=== PATIENT | male | born 1960 | race Caucasian/White ===

== ENCOUNTER 2018-03-04 17:47 | Emergency (ER) | payer MEDICARE, BC ==
[2018-03-04 19:38] VITALS: BP 153/102
--- NOTE | 2018-03-04 19:51 | EDM.PDOC ---
ED HPI GENERAL MEDICAL PROBLEM - General Chief Complaint: Neck Problem Stated Complaint: NECK PAIN/[phone] Time Seen by Provider: 03/04/18 19:44 Source of Information: Reports: Patient History Limitations: Reports: No Limitations - History of Present Illness INITIAL COMMENTS - FREE TEXT/NARRATIVE: pt states sudden onset last tuesday while watching football and turning her head to see the actin was difficult and progressively getting worse till today unable to turn head and even hard to swallow but denies sore throat. Neck Pain Score (Numeric/FACES): 10 - Related Data Allergies Allergy/AdvReac Type Severity Reaction Status Date / Time No Known Allergies Allergy Verified 03/04/18 18:19 Home Meds: Home Meds Atenolol [Tenormin] 50 mg PO DAILY 11/04/13 [History] Diphenoxylate HCl/Atropine [Lomotil] 1 tab PO TID PRN 11/06/13 [History] Allopurinol [Zyloprim] 300 mg PO DAILY 01/22/16 [History] Benazepril [Lotensin] 20 mg PO DAILY 01/22/16 [History] Betamethasone/Clotrimazole [Lotrisone] 1 applic TOP BID 01/22/16 [History] Methylcellulose (with Sugar) [Citrucel] 2 scoop PO DAILY PRN 01/22/16 [History] Naproxen [Naprosyn] 500 mg PO BID 01/22/16 [History] Rivaroxaban [Xarelto] 10 mg PO DAILY 01/22/16 [History] Tadalafil [Cialis] 20 mg PO DAILY PRN 01/22/16 [History] Triamcinolone Acetonide [Triamcinolone Acetonide 0.1% Crm] 1 applic TOP BID [History] amLODIPine [Norvasc] 10 mg PO DAILY 01/22/16 [History] oxyCODONE 5 mg PO Q4H PRN 01/22/16 [History] traMADol [Ultram] 50 mg PO Q6H PRN 01/22/16 [History] Griseofulvin Ultramicrosize [Bisi-Peg] 500 mg PO BIDMEALS 01/23/16 [History] Patient's Own Medication [Ptom] 0 each PO 1200,1800 each 08/23/16 [Rx] Past Medical History HEENT History: Reports: Impaired Vision Cardiovascular History: Reports: High Cholesterol, Hypertension Respiratory History: Reports: None Genitourinary History: Reports: None Musculoskeletal History: Reports: Arthritis, Gout Neurological History: Reports: None Psychiatric History: Reports: None Endocrine/Metabolic History: Reports: None Hematologic History: Reports: None Immunologic History: Reports: None Oncologic (Cancer) History: Reports: None Dermatologic History: Reports: None - Infectious Disease History Infectious Disease History: Reports: Chicken Pox - Past Surgical History GI Surgical History: Reports: Appendectomy, Colon Other Neurological Surgeries/Procedures: back injury, compressed disks Musculoskeletal Surgical History: Reports: Knee Replacement, Other (See Below) Other Musculoskeletal Surgeries/Procedures:: ankle and elbow Social & Family History - Family History Family Medical History: Noncontributory - Tobacco Use Smoking Status *Q: Never Smoker Second Hand Smoke Exposure: No - Caffeine Use Caffeine Use: Reports: Coffee - Recreational Drug Use Recreational Drug Use: No - Living Situation & Occupation Living situation: Reports: with Family ED ROS GENERAL - Review of Systems Review Of Systems: ROS reveals no pertinent complaints other than HPI. ED EXAM, UPPER BACK/NECK PAIN - Physical Exam Exam: See Below Exam Limited By: No Limitations General Appearance: Alert, WD/WN, Mild Distress, Other (neck pain) Ears Exam: Hearing Grossly Normal Throat/Mouth Exam: Normal Voice, No Airway Compromise Head Exam: Atraumatic Neck Exam: Muscle Spasm, Tenderness, Tender Lateral Nexus Criteria: No: Posterior, Midline Cervical Tenderness, Evidence of Intoxication, Altered Level of Consciousness, Focal Neurological Deficit, Painful Distraction Injuries Cardiovascular/Respiratory: Regular Rate, Rhythm, No Respiratory Distress GI/Abdominal: Soft, Non-Tender Neurologic: No Motor/Sensory Deficits, Alert, Normal Mood/Affect, Oriented x 3 Psychiatric: Normal Affect, Normal Mood Skin Exam: Normal Color, Warm/Dry Lymphatic: No Adenopathy Course - Vital Signs Last Recorded V/S: Last Vital Signs Temp 37.2 C 03/04/18 19:37 Pulse 88 03/04/18 19:37 Resp 18 03/04/18 19:37 BP 153/102 H 03/04/18 19:37 Pulse Ox 96 03/04/18 19:37 - Orders/Labs/Meds Orders: Active Orders 24 hr Category Date Time Status Orphenadrine [Norflex] Med 03/04/18 21:00 Active 60 mg IM Q12H Medication Orders Orphenadrine Citrate (Norflex) 60 mg IM Q12H WANDA Last Admin: 03/04/18 20:57 Dose: 60 mg Labs: Laboratory Tests 03/04/18 03/04/18 03/04/18 Range/Units 20:14 20:14 20:14 WBC 9.6 (5.0-10.0) 10^3/uL RBC 4.01 L (4.6-6.2) 10^6/uL Hgb 13.6 L (14.0-18.0) g/dL Hct 40.8 (40.0-54.0) % MCV 101.7 H D (80-100) fL MCH 33.9 (27.0-34.0) pg MCHC 33.3 (33.0-35.0) g/dL Plt Count 151 (150-450) 10^3/uL Neut % (Auto) 83.6 H (42.2-75.2) % Lymph % (Auto) 9.0 L (20.5-50.1) % [place] % (Auto) 6.8 (2-8) % Eos % (Auto) 0.3 L (1.0-3.0) % Baso % (Auto) 0.3 (0.0-1.0) % Sodium 135 (135-145) mmol/L Potassium 4.2 (3.6-5.0) mmol/L Chloride 97 L (101-111) mmol/L Carbon Dioxide 26.0 (21.0-31.0) mmol/L Anion Gap 16.2 BUN 13 (7-18) mg/dL Creatinine 0.9 (0.6-1.3) mg/dL Est Cr Clr Drug Dosing 89.47 mL/min Estimated GFR (MDRD) > 60 BUN/Creatinine Ratio 14.44 Glucose 110 H (74-105) mg/dL Lactic Acid 1.9 (0.5-2.2) mmol/L Calcium 9.5 (8.4-10.2) mg/dl Total Bilirubin 1.1 H (0.2-1.0) mg/dL AST 72 H (10-42) IU/L ALT 44 (10-60) IU/L Alkaline Phosphatase 133 H (42-121) IU/L Total Protein 8.4 H (6.7-8.2) g/dl Albumin 4.0 (3.2-5.5) g/dl Globulin 4.4 Albumin/Globulin Ratio 0.91 Meds: Medications Generic Name Dose Route Start Last Admin Trade Name Ignacia PRN Reason Stop Dose Admin Orphenadrine Citrate 60 mg 03/04/18 21:00 03/04/18 20:57 Norflex IM 60 mg Q12H WANDA Administration Discontinued Medications Generic Name Dose Route Start Last Admin Trade Name Ignacia PRN Reason Stop Dose Admin Butorphanol Tartrate 1 mg 03/04/18 21:36 03/04/18 21:47 Stadol IVPUSH 03/04/18 21:37 1 mg ONETIME ONE Administration Ketorolac Tromethamine 15 mg 03/04/18 19:51 03/04/18 20:16 Toradol IVPUSH 03/04/18 19:52 15 mg ONETIME ONE Administration - Re-Assessments/Exams Free Text/Narrative Re-Assessment/Exam: 03/04/18 22:22 re-exam; feeling much better now ready to go home Departure - Departure Time of Disposition: 22:22 Disposition: Home, Self-Care 01 Condition: Good Clinical Impression: Cervical paraspinal muscle spasm - Discharge Information Instructions: Muscle Cramps and Spasms, [id number] Forms: ED Department Discharge Additional Instructions: 1) rest and avoid lifting and straining 2) try ice or heat to sore areas 3) recheck as needed - My Orders Last 24 Hours: My Active Orders 03/04/18 21:00 Orphenadrine [Norflex] 60 mg IM Q12H - Assessment/Plan Last 24 Hours: My Active Orders 03/04/18 21:00 Orphenadrine [Norflex] 60 mg IM Q12H
[2018-03-04] MEDS: Ketorolac 30 MG/ML SDV IVPUSH ONE (20:16)
[2018-03-04 20:40] LABS: ANION GAP 16.2; CHLORIDE,CL 97 mmol/L (101-111); SODIUM,NA 135 mmol/L (135-145)
[2018-03-04] MEDS: Butorphanol 2 MG/ML SDV IVPUSH ONE (21:47)
[2018-03-05] MEDS: Cyclobenzaprine 10 MG Tab ONE (00:39)
[2018-03-05] MEDS: Acetaminophen/HYDROcodone 325-10 MG Tab ONE (00:39)
== END 2018-03-04 22:33 | disposition home or self-care (01) ==
LOC: DL.ED 17:47
DX: M62.838 Other muscle spasm (principal); M54.2 Cervicalgia; I10 Essential (primary) hypertension; Z79.899 Other long term (current) drug therapy
CPT/HCPCS: 36415; 72125; 80053; 83605; 85025; 96372; 96374; 96375; 99284; J0595; J1885; J2360

== ENCOUNTER 2018-08-07 07:50 | Emergency (ER) | payer MEDICARE, BC ==
[2018-08-07 08:18] VITALS: BP 119/76
--- NOTE | 2018-08-07 09:12 | EDM.PDOC ---
<Annamaria Vick R - Last Filed: 08/07/18 09:32> ED HPI GENERAL MEDICAL PROBLEM - General Chief Complaint: ENT Problem Stated Complaint: LEFT SIDE OF FACE WAS SWOLLEN Time Seen by Provider: 08/07/18 08:30 Source of Information: Reports: Patient, Family, RN, RN Notes Reviewed - History of Present Illness INITIAL COMMENTS - FREE TEXT/NARRATIVE: Patient presents to the Emergency department with complaints of lip swelling. He stated his left side of his lips suddenly swelling. He had come mild difficulty swallowing. Denies difficulty breathing. Denies any new food, medication, or exposure to anything new. He had not eaten yet this morning. Patient reports seasonal allergies. Denies confusion, weakness, vision changes. Family states his speak is "thick." Denies any pain. States his lip feels like he has Novocaine injected. Onset: Today, Sudden Onset Date: 08/07/18 Onset Time: 07:00 Location: Reports: Face Quality: Reports: Other (swelling) Severity: Mild Improves with: Reports: None Worsens with: Reports: None Treatments BLENDER/BRAZE APPLICATOR: Reports: Other (see below) Other Treatments BLENDER/BRAZE APPLICATOR: none Throat Pain Score (Numeric/FACES): 2 - Related Data Allergies Allergy/AdvReac Type Severity Reaction Status Date / Time No Known Allergies Allergy Verified 08/07/18 08:06 Home Meds: Home Meds Atenolol [Tenormin] 50 mg PO DAILY 11/04/13 [History] Diphenoxylate HCl/Atropine [Lomotil] 1 tab PO TID PRN 11/06/13 [History] Allopurinol [Zyloprim] 450 mg PO DAILY 01/22/16 [History] Benazepril [Lotensin] 20 mg PO DAILY 01/22/16 [History] amLODIPine [Norvasc] 10 mg PO DAILY 01/22/16 [History] traMADol [Ultram] 50 mg PO Q6H PRN 01/22/16 [History] Past Medical History HEENT History: Reports: Impaired Vision, Other (See Below) Other HEENT History: hx of sty to eyelid Cardiovascular History: Reports: High Cholesterol, Hypertension Respiratory History: Reports: None Genitourinary History: Reports: None Musculoskeletal History: Reports: Arthritis, Gout Neurological History: Reports: None Psychiatric History: Reports: None Endocrine/Metabolic History: Reports: None Hematologic History: Reports: None Immunologic History: Reports: None Oncologic (Cancer) History: Reports: None Dermatologic History: Reports: Other (See Below) Other Dermatologic History: bergkaley dx - Infectious Disease History Infectious Disease History: Reports: Chicken Pox - Past Surgical History GI Surgical History: Reports: Appendectomy, Colon Other Neurological Surgeries/Procedures: back injury(fx T12), compressed spinal cord Musculoskeletal Surgical History: Reports: Knee Replacement, Other (See Below) Other Musculoskeletal Surgeries/Procedures:: ankle broken bones and torn ligaments. and elbow bursa sac removed Social & Family History - Family History Family Medical History: Noncontributory - Tobacco Use Smoking Status *Q: Never Smoker - Caffeine Use Caffeine Use: Reports: Coffee - Recreational Drug Use Recreational Drug Use: No - Living Situation & Occupation Living situation: Reports: with Family ED ROS ENT - Review of Systems Review Of Systems: See Below Constitutional: Reports: No Symptoms. Denies: Fever, Chills HEENT: Reports: Other (left sided lip swelling) Respiratory: Reports: No Symptoms. Denies: Shortness of Breath, Wheezing Cardiovascular: Reports: No Symptoms. Denies: Chest Pain Endocrine: Reports: No Symptoms GI/Abdominal: Reports: No Symptoms : Reports: No Symptoms Musculoskeletal: Reports: No Symptoms Skin: Reports: No Symptoms. Denies: Pruritis, Rash Neurological: Reports: No Symptoms, Numbness (to left lips). Denies: Confusion , Dizziness Psychiatric: Reports: No Symptoms Hematologic/Lymphatic: Reports: No Symptoms Immunologic: Reports: No Symptoms ED EXAM, ENT - Physical Exam Exam: See Below General Appearance: Alert, WD/WN, No Apparent Distress Eye Exam: Bilateral Eye: Other (sty to left upper eye lid, eye lids fully closing when blinking, no swelling or redness) Ears: Normal External Exam, Normal Canal, Hearing Grossly Normal, Normal TMs, TM Obscured by Cerumen (right) Nose: Normal Inspection, Normal Mucousa, No Blood Mouth/Throat: Normal Gums, Normal Teeth, Lip Swelling (left sided), Other ( unable to visualize oropharynx). No: Bleeding, Throat Pain, Throat Swelling, Tongue Swelling Head: Atraumatic, Normocephalic Neck: Normal Inspection, Supple, Non-Tender, Full Range of Motion. No: Lymphadenopathy (L), Lymphadenopathy (R) Respiratory/Chest: No Respiratory Distress, Lungs Clear, Normal Breath Sounds, No Accessory Muscle Use, Chest Non-Tender Cardiovascular: Normal Peripheral Pulses, Regular Rate, Rhythm, No Edema, No Gallop, No JVD, No Murmur, No Rub GI/Abdominal: Normal Bowel Sounds, Soft, Non-Tender, No Organomegaly, No Distention, No Abnormal Bruit, No Mass (Male) Exam: Deferred Rectal (Males) Exam: Deferred Extremities: Normal Inspection (equal strength, chronic right shoulder pain when assessing upper extremities strength), Normal Range of Motion, Non-Tender, No Pedal Edema, Normal Capillary Refill Neurological: Alert, Oriented, CN II-XII Intact, Normal Cognition, Normal Gait, Normal Reflexes, No Motor/Sensory Deficits. No: Confused, Memory Loss Recent Events Psychiatric: Normal Affect, Normal Mood Skin: Warm, Dry, Intact, Normal Color, No Rash Lymphatic: No Adenopathy Course - Vital Signs Last Recorded V/S: Last Vital Signs Temp 35.5 C 08/07/18 08:01 Pulse 96 08/07/18 08:01 Resp 17 08/07/18 08:01 BP 119/76 08/07/18 08:01 Pulse Ox 98 08/07/18 08:01 - Orders/Labs/Meds Orders: Active Orders 24 hr Category Date Time Status CULTURE STREP A CONFIRMATION [] Stat Lab 08/07/18 07:56 Results STREP SCRN A RAPID W CULT CONF [] Stat Lab 08/07/18 07:56 Results Departure - Departure Time of Disposition: 09:18 Disposition: Home, Self-Care 01 Condition: Good Clinical Impression: Lima's palsy - Discharge Information *PRESCRIPTION DRUG MONITORING PROGRAM REVIEWED*: Not Applicable *COPY OF PRESCRIPTION DRUG MONITORING REPORT IN PATIENT KIRAN: Not Applicable Instructions: Lima Palsy, Adult Forms: ED Department Discharge Additional Instructions: valacyclovir 1000mg three times a day for 7 days Prednisone 60mg once a day for 7 days Physical Therapy evaluation and treat for lima's Palsy Return to ED if symptoms of neurological changes, difficulty swallowing, or breathing worsen or are not improving. If rash near eye or symptoms of eyelid not closing return to clinic or still operator. See PCP if symptoms are worsening or not improving in one week. - My Orders Last 24 Hours: My Active Orders 08/07/18 07:56 CULTURE STREP A CONFIRMATION [RM] Stat STREP SCRN A RAPID W CULT CONF [RM] Stat - Assessment/Plan Last 24 Hours: My Active Orders 08/07/18 07:56 CULTURE STREP A CONFIRMATION [RM] Stat STREP SCRN A RAPID W CULT CONF [RM] Stat Assessment:: Lima's Palsy Plan: valacyclovir 1000mg three times a day for 7 days Prednisone 60mg once a day for 7 days Physical Therapy evaluation and treat for lima's Palsy Return to ED if symptoms of neurological changes, difficulty swallowing, or breathing worsen or are not improving. If rash near eye or symptoms of eyelid not closing return to clinic or still operator. See PCP if symptoms are worsening or not improving in one week. <David Boyd - Last Filed: 08/07/18 11:54> ED HPI GENERAL MEDICAL PROBLEM - History of Present Illness INITIAL COMMENTS - FREE TEXT/NARRATIVE: Patient has no recent falls. No headache. No visual disturbances. No change in the functionality of his upper or lower extremities. No paresthesias of his upper or lower extremities. No loss of bowel or bladder. ED ROS ENT - Review of Systems Neurological: Reports: Numbness ED EXAM, ENT - Physical Exam Exam Limited By: No Limitations Mouth/Throat: Other (unable to visualize oropharynx. Posterior pharynx is unremarkable. There is no swelling of the tongue. There is no swelling in the oropharynx. There is no erythema induration or swelling under the tongue.) Neurological: CN II-XII Intact (Grossly intact cranial nerves II12. Although he does have a very small amount of laxity of the muscles on the left upper and left lower lip. There is no swelling erythema induration. His speech is minimally thick. But otherwise clear.) Course - Re-Assessments/Exams Free Text/Narrative Re-Assessment/Exam: 08/07/18 11:53 This patient was seen in tandem with the nurse practitioner soon. I was present during the examination plan of care and disposition. I also physically examine the patient. I agree with the plan of care and disposition of the patient. Although the patient's findings are rather subtle and do not see any evidence of angioedema. His unilateral and abrupt onset this really is a presentation of Lima's palsy. He has no focal neurological deficits concerning for stroke. He also does not have any temporal cords tenderness visual disturbances or headache concerning for temporal arteritis. And this is unilateral. We'll treated with prednisone and acyclovir and physical therapy. The patient is understanding of this and his questions are answered.
== END 2018-08-07 09:44 | disposition home or self-care (01) ==
LOC: DL.ED 07:50
DX: G51.0 Bell's palsy (principal); E78.00 Pure hypercholesterolemia, unspecified; I10 Essential (primary) hypertension; Z79.899 Other long term (current) drug therapy
CPT/HCPCS: 87081; 87430; 99283

== ENCOUNTER 2018-08-08 09:04 | Emergency (ER) | payer MEDICARE, BC ==
[2018-08-08 09:21] VITALS: BP 87/52
--- NOTE | 2018-08-08 09:44 | EDM.PDOC ---
<Annamaria Vick R - Last Filed: 08/08/18 09:48> ED HPI GENERAL MEDICAL PROBLEM - General Chief Complaint: General Stated Complaint: TONGUE AND LOWER LIP SWELLED LAST PM Time Seen by Provider: 08/08/18 09:15 Source of Information: Reports: Patient, Family, RN, RN Notes Reviewed - History of Present Illness INITIAL COMMENTS - FREE TEXT/NARRATIVE: Patient presents to ED with complaints to bottom lip and tongue swelling. He took Benadryl. He is having difficulty swallowing. No breathing difficulties. He was seen yesterday 08/07/18 for one sided lip swelling. He was treated with Prednisone and Valacyclovir but did not take any medication until this morning. Last night the swelling worsened and was on bilateral bottom lip and tongue. He took his Benazepril last night. Denies fever, chills, N&V, chest pain, SOB. Duration: Day(s): (1) Location: Reports: Face Worsens with: Reports: None Associated Symptoms: Reports: Other (lip and tongue swelling) Treatments DIRECTOR GEOPHYSICAL LABORATORY: Reports: Other (see below) (benadryl) - Related Data Allergies Allergy/AdvReac Type Severity Reaction Status Date / Time PAVAN Inhibitors AdvReac Severe Facial Verified 08/08/18 09:40 Swelling Home Meds: Home Meds Atenolol [Tenormin] 50 mg PO DAILY 11/04/13 [History] Diphenoxylate HCl/Atropine [Lomotil] 1 tab PO TID PRN 11/06/13 [History] Allopurinol [Zyloprim] 450 mg PO DAILY 01/22/16 [History] Benazepril [Lotensin] 20 mg PO DAILY 01/22/16 [History] amLODIPine [Norvasc] 10 mg PO DAILY 01/22/16 [History] traMADol [Ultram] 50 mg PO Q6H PRN 01/22/16 [History] Past Medical History HEENT History: Reports: Impaired Vision, Other (See Below) Other HEENT History: hx of sty to eyelid Cardiovascular History: Reports: High Cholesterol, Hypertension Respiratory History: Reports: None Genitourinary History: Reports: None Musculoskeletal History: Reports: Arthritis, Gout Neurological History: Reports: None Psychiatric History: Reports: None Endocrine/Metabolic History: Reports: None Hematologic History: Reports: None Immunologic History: Reports: None Oncologic (Cancer) History: Reports: None Dermatologic History: Reports: Other (See Below) Other Dermatologic History: guille dx - Infectious Disease History Infectious Disease History: Reports: Chicken Pox - Past Surgical History GI Surgical History: Reports: Appendectomy, Colon Other Neurological Surgeries/Procedures: back injury(fx T12), compressed spinal cord Musculoskeletal Surgical History: Reports: Knee Replacement, Other (See Below) Other Musculoskeletal Surgeries/Procedures:: ankle broken bones and torn ligaments. and elbow bursa sac removed Social & Family History - Family History Family Medical History: Noncontributory - Tobacco Use Smoking Status *Q: Never Smoker Second Hand Smoke Exposure: No - Caffeine Use Caffeine Use: Reports: Coffee - Living Situation & Occupation Living situation: Reports: with Family ED ROS GENERAL - Review of Systems Review Of Systems: See Below Constitutional: Denies: Fever, Chills HEENT: Reports: Other (bilateral lower lip swelling and tongue swelling, Difficulty swallowing, denies difficulty breathing and pain. ) Respiratory: Reports: No Symptoms. Denies: Shortness of Breath, Wheezing, Cough Cardiovascular: Reports: No Symptoms. Denies: Chest Pain, Dyspnea on Exertion Endocrine: Reports: No Symptoms GI/Abdominal: Reports: Difficulty Swallowing (due to tongue swelling) : Reports: No Symptoms Musculoskeletal: Reports: No Symptoms Skin: Reports: No Symptoms Neurological: Reports: No Symptoms Psychiatric: Reports: No Symptoms Hematologic/Lymphatic: Reports: No Symptoms Immunologic: Reports: No Symptoms ED EXAM, GENERAL - Physical Exam Exam: See Below Exam Limited By: No Limitations General Appearance: Alert, WD/WN, No Apparent Distress, Other (Patient apears to be breathing easily, able to speak in full sentenences, no increased work of breathing) Nose: Normal Inspection, Normal Mucosa, No Blood Throat/Mouth: No Airway Compromise, Other (lower lip swelling throughout, enlarged smooth tongue, no swelling, induration or redness under toungue. Minimal view of oropharynx, nor erythema or swelling. ) Head: Atraumatic, Normocephalic Neck: Normal Inspection, Non-Tender, Lymphadenopathy (L), Lymphadenopathy (R), Other Respiratory/Chest: No Respiratory Distress, Lungs Clear, Normal Breath Sounds, No Accessory Muscle Use, Chest Non-Tender Cardiovascular: Normal Peripheral Pulses, Regular Rate, Rhythm, No Edema, No Gallop, No JVD, No Murmur, No Rub Neurological: Alert, Oriented, CN II-XII Intact, Normal Cognition Psychiatric: Normal Affect, Normal Mood Skin Exam: Warm, Dry, Intact, Normal Color, No Rash Lymphatic: No Adenopathy Course - Vital Signs Last Recorded V/S: Last Vital Signs Temp 37.1 C 08/08/18 09:06 Pulse 84 08/08/18 09:06 Resp 18 08/08/18 09:06 BP 87/52 L 08/08/18 09:06 Pulse Ox 97 08/08/18 09:06 Departure - Departure Time of Disposition: 09:35 Disposition: Home, Self-Care 01 Condition: Fair Clinical Impression: Angio-edema Qualifiers: Encounter type: initial encounter Qualified Code(s): T78.3XXA - Angioneurotic edema, initial encounter - Discharge Information *PRESCRIPTION DRUG MONITORING PROGRAM REVIEWED*: Not Applicable *COPY OF PRESCRIPTION DRUG MONITORING REPORT IN PATIENT KIRAN: Not Applicable Instructions: Angioedema, [id number] Forms: ED Department Discharge Additional Instructions: Stop benazepril and valacyclovir. Continue taking prednisone and Benadryl. Take Claritin or Zyrtec for next week Follow up with PCP this week to monitor blood pressure since stopping PAVAN inhibitor. Make sure to add PAVAN inhibitors to allergy list. Return to ED if tongue/mouth swelling worsens or difficulty breathing or new symptoms develop. - Assessment/Plan Assessment:: Angioedema Plan: Stop benazepril and valacyclovir. Continue taking prednisone and Benadryl. Take Claritin or Zyrtec for next week Follow up with PCP this week to monitor blood pressure since stopping PAVAN inhibitor. Make sure to add PAVAN inhibitors to allergy list. Return to ED if tongue/mouth swelling worsens or difficulty breathing or new symptoms develop. <David Boyd - Last Filed: 08/08/18 14:39> ED HPI GENERAL MEDICAL PROBLEM - History of Present Illness INITIAL COMMENTS - FREE TEXT/NARRATIVE: Yesterday we had concern of either [place] Palsy or Angio-edema but with the presentation of unilateral symptoms numbness and his lips and tongue and not bilateral we chose [place] Palsy, although did inform him if anything reoccured to not take any more of his pavan inhibitor and be seen again. He did have more swelling during the night although had not taken his prednisone yet and also took his Benazepril this morning. ED EXAM, GENERAL - Physical Exam Throat/Mouth: Other Course - Re-Assessments/Exams Free Text/Narrative Re-Assessment/Exam: 08/08/18 14:38 We will inform the patient that this is clearly now angioedema due to the bilateral nature of this. He needs to let us Pavan inhibitors or ARBs as an allergy. Continue taking prednisone Benadryl Zyrtec and/or H2 adam such as Zantac. He needs to recheck in the clinic to ensure what his blood pressure is after the discontinuation of the PAVAN inhibitor today. If at any time the swelling gets to the point where he is unable to breathe and swallow he is drooling or gets much worse he needs to be reevaluated immediately. He is understanding this and his questions are answered.
== END 2018-08-08 10:06 | disposition home or self-care (01) ==
LOC: DL.ED 09:04
DX: T78.3XXA Angioneurotic edema, initial encounter (principal); E78.00 Pure hypercholesterolemia, unspecified; I10 Essential (primary) hypertension; Z79.899 Other long term (current) drug therapy
CPT/HCPCS: 99283

== ENCOUNTER 2021-04-09 19:49 | Emergency (ER) | payer MEDICARE, BC ==
[2021-04-09] MEDS ORDERED: Propofol 200 MG/20 ML SDV IV ONE (19:50)
[2021-04-09] MEDS ORDERED: Ondansetron 4 MG/2 ML SDV IVPUSH ONE (20:02)
[2021-04-09] MEDS ORDERED: fentaNYL 100 MCG/2 ML SDV IVPUSH ONE (20:02)
--- NOTE | 2021-04-09 20:17 | EDM.PDOC ---
ED HPI GENERAL MEDICAL PROBLEM - General Chief Complaint: Upper Extremity Injury/Pain Stated Complaint: AMBULANCE Time Seen by Provider: 04/09/21 20:00 Source of Information: Reports: Patient History Limitations: Reports: No Limitations - History of Present Illness INITIAL COMMENTS - FREE TEXT/NARRATIVE: 60 y/o m c/o R 8/10 shoulder pain after falling at home. Pt hx of falls se condary to a t12 nerve injury he sustained years ago. Pt states he was walking when his leg gave out and he fell into the wall onto his R arm. Denies hitting his head, loc, vision prob, cp, db, abd pn. He reports he fell in [facility] last week and sustained a lac to his head. He reports he fell a year ago and dislocated his L shoulder. He admits to [facility] between 3-5 pm. neg blood thinners. - Related Data Allergies Allergy/AdvReac Type Severity Reaction Status Date / Time BLANCHE Inhibitors AdvReac Severe Facial Verified 04/09/21 19:50 Swelling Home Meds: Home Meds atenoloL [Tenormin] 50 mg PO DAILY 11/04/13 [History] Diphenoxylate HCl/Atropine [Lomotil] 1 tab PO TID PRN 11/06/13 [History] Allopurinol [Zyloprim] 450 mg PO DAILY 01/22/16 [History] Benazepril [Lotensin] 20 mg PO DAILY 01/22/16 [History] amLODIPine [Norvasc] 10 mg PO DAILY 01/22/16 [History] traMADol [Ultram] 50 mg PO Q6H PRN 01/22/16 [History] Past Medical History HEENT History: Reports: Impaired Vision, Other (See Below) Other HEENT History: hx of sty to eyelid Cardiovascular History: Reports: High Cholesterol, Hypertension Respiratory History: Reports: None Genitourinary History: Reports: None Musculoskeletal History: Reports: Arthritis, Gout Neurological History: Reports: None Psychiatric History: Reports: None Endocrine/Metabolic History: Reports: None Hematologic History: Reports: None Immunologic History: Reports: None Oncologic (Cancer) History: Reports: None Dermatologic History: Reports: Other (See Below) Other Dermatologic History: bergers dx - Infectious Disease History Infectious Disease History: Reports: Chicken Pox - Past Surgical History GI Surgical History: Reports: Appendectomy, Colon Other Neurological Surgeries/Procedures: back injury(fx T12), compressed spinal cord Musculoskeletal Surgical History: Reports: Knee Replacement, Other (See Below) Other Musculoskeletal Surgeries/Procedures:: ankle broken bones and torn ligaments. and elbow bursa sac removed Social & Family History - Family History Family Medical History: No Pertinent Family History - Tobacco Use Tobacco Use Status *Q: Light Tobacco User Years of Tobacco use: 40 Packs/Tins Daily: 0.2 - Caffeine Use Caffeine Use: Reports: None - Living Situation & Occupation Living situation: Reports: with Family Review of Systems - Review of Systems Review Of Systems: Comprehensive ROS is negative, except as noted in HPI. ED EXAM, GENERAL - Physical Exam Exam: See Below General Appearance: Alert, No Apparent Distress Eye Exam: Bilateral Eye: PERRL (horizontal nystagmus) Nose: Normal Inspection, Normal Mucosa, No Blood Throat/Mouth: Normal Inspection, Normal Lips, Normal Teeth, Normal Gums, Normal Oropharynx, Normal Voice, No Airway Compromise Head: Atraumatic, Normocephalic Neck: Normal Inspection, Supple, Non-Tender, Full Range of Motion Respiratory/Chest: No Respiratory Distress, Lungs Clear, Normal Breath Sounds, No Accessory Muscle Use, Chest Non-Tender Cardiovascular: Normal Peripheral Pulses, Regular Rate, Rhythm, No Edema, No Gallop, No JVD, No Murmur, No Rub Peripheral Pulses: 2+: Radial (L), Radial (R) GI/Abdominal: Soft (Male) Exam: Deferred Rectal (Males) Exam: Deferred Back Exam: Normal Inspection, Full Range of Motion Extremities: Other (obvious deformity to R shoulder R radial intact. ) Neurological: Alert, Oriented, CN II-XII Intact, Normal Cognition, Normal Gait, Normal Reflexes, No Motor/Sensory Deficits Skin Exam: Warm, Dry, Intact ED TRAUMA EXTREMITY PROCEDURES - Joint Reduction Right Shoulder Sedation: Conscious Sedation Pre-Procedure NV Status: Normal Post-Procedure NV Status: Normal Number of Attempts: 1 Post-Reduction Imaging: Completely Reduced Joint Reduction Complications: No Progress/Comments: Conscious sedation performed by [employer] and tolerated well. Manual tracking with abduction reduced the dislocation. No complication. Course - Vital Signs Last Recorded V/S: Last Vital Signs Temp 97.8 F 04/09/21 19:50 Pulse 66 04/09/21 20:50 Resp 12 04/09/21 20:50 BP 106/68 04/09/21 20:50 Pulse Ox 96 04/09/21 20:50 - Orders/Labs/Meds Orders: Active Orders 24 hr Category Date Time Status Sodium Chloride 0.9% [Normal Saline] 1,000 ml Med 04/09/21 20:22 Active IV .BOLUS DME for Discharge [COMM] Urgent Oth 04/09/21 21:15 Ordered Medication Orders Sodium Chloride (Normal Saline) 1,000 mls @ 125 mls/hr IV .BOLUS ONE Stop: 04/10/21 04:21 Last Admin: 04/09/21 20:32 Dose: 125 mls/hr Documented by: JUAN MIGUEL Meds: Medications Generic Name Dose Route Start Last Admin Trade Name Freq PRN Reason Stop Dose Admin Sodium Chloride 1,000 mls @ 125 mls/hr 04/09/21 20:22 04/09/21 20:32 Normal Saline IV 04/10/21 04:21 125 mls/hr .BOLUS ONE Administration Discontinued Medications Generic Name Dose Route Start Last Admin Trade Name Freq PRN Reason Stop Dose Admin Acetaminophen 1,000 mg 04/09/21 20:53 04/09/21 21:05 Acetaminophen 500 Mg Tab PO 04/09/21 20:54 1,000 mg ONETIME ONE Administration Fentanyl 75 mcg 04/09/21 20:02 04/09/21 20:13 Fentanyl 100 Mcg/2 Ml Sdv IVPUSH 04/09/21 20:03 75 mcg ONETIME ONE Administration Protocol Ondansetron HCl 4 mg 04/09/21 20:02 04/09/21 20:10 Ondansetron 4 Mg/2 Ml Sdv IVPUSH 04/09/21 20:03 4 mg ONETIME ONE Administration Departure - Departure Time of Disposition: 20:46 Disposition: Home, Self-Care 01 Condition: Good Clinical Impression: Shoulder dislocation Qualifiers: Encounter type: initial encounter Laterality: right Qualified Code(s): S43.004A - Unspecified dislocation of right shoulder joint, initial encounter - Discharge Information *PRESCRIPTION DRUG MONITORING PROGRAM REVIEWED*: Not Applicable *COPY OF PRESCRIPTION DRUG MONITORING REPORT IN PATIENT KIRAN: Not Applicable Instructions: Shoulder Dislocation, [id number] Forms: ED Department Discharge Additional Instructions: 1. Use tylenol or Ibuprofen for pain as needed. 2. Ice and rest your shoulder 3. Follow up with an orthopedic surgeon next week about your shoulder dislocation. Continue to wear the shoulder immobilizer until you can follow up with an orthopedic surgeon and be evaluated by them. Sepsis Event Note (ED) - Evaluation Sepsis Screening Result: No Definite Risk - Focused Exam Vital Signs: Vital Signs Temp Pulse Resp BP Pulse Ox 04/09/21 20:50 66 12 106/68 96 04/09/21 19:50 97.8 F 73 16 128/89 95 - My Orders Last 24 Hours: My Active Orders 04/09/21 20:22 Sodium Chloride 0.9% [Normal Saline] 1,000 ml IV .BOLUS - Assessment/Plan Last 24 Hours: My Active Orders 04/09/21 20:22 Sodium Chloride 0.9% [Normal Saline] 1,000 ml IV .BOLUS
--- NOTE | 2021-04-09 20:21 | CR ---
PROCEDURE INFORMATION: Exam: XR Right Shoulder Exam date and time: 04/09/2021 7:51 PM Age: 60 years old Clinical indication: Other: Fall, pain; Additional info: Fall pain TECHNIQUE: Imaging protocol: XR Right shoulder. Views: 2 or more views. COMPARISON: No relevant prior studies available. FINDINGS: Bones/joints: Right humerus is dislocated medially and inferiorly. Presumably, it is dislocated anteriorly, but this is not confirmed on these views. No definite fracture. Soft tissues: Normal. IMPRESSION: Right shoulder dislocation
[2021-04-09] MEDS ORDERED: Sodium Chloride 0.9% 1,000 ML IV ONE (20:22)
--- NOTE | 2021-04-09 20:44 | CR ---
PROCEDURE INFORMATION: Exam: XR Right Shoulder Exam date and time: 04/09/2021 8:36 PM Age: 60 years old Clinical indication: Other: Post reduction TECHNIQUE: Imaging protocol: XR Right shoulder. Views: 2 or more views. COMPARISON: CR Shoulder Comp Rt 04/09/2021 7:51 PM FINDINGS: Bones/joints: Scapular Y-view demonstrates improved position status post reduction. No definite fracture. Soft tissues: Normal. IMPRESSION: Improved alignment status post reduction
[2021-04-09] MEDS ORDERED: Acetaminophen 500 MG Tab PO ONE (20:53)
[2021-04-09 22:07] VITALS: BP 91/71; PULSE 72
== END 2021-04-09 21:47 | disposition home or self-care (01) ==
LOC: DL.ED 19:49
DX: S43.004A Unspecified dislocation of right shoulder joint, initial encounter (principal); E78.00 Pure hypercholesterolemia, unspecified; I10 Essential (primary) hypertension; M10.9 Gout, unspecified; Z72.0 Tobacco use; Z88.8 Allergy status to other drugs, medicaments and biological substances; Z79.899 Other long term (current) drug therapy; W18.39XA Other fall on same level, initial encounter
CPT/HCPCS: 23655; 73030; 96374; 99284; A9270; J2405; J2704; J3010; J7030; 01620

== ENCOUNTER 2023-09-24 08:07 | Emergency (ER) | payer MEDICARE, BC ==
[2023-09-24 09:27] VITALS: BP 128/81; PULSE 68
[2023-09-24] MEDS: Diphtheria,Pertussis(Acell),Tetanus Vaccine 0.5 ML Syringe IM ONE (09:40)
[2023-09-24] MEDS: cefTRIAXone 1 GM Vial IM ONE (09:40)
== END 2023-09-24 09:50 | disposition home or self-care (01) ==
LOC: DL.ED 08:07
DX: L02.415 Cutaneous abscess of right lower limb (principal); I10 Essential (primary) hypertension; E78.00 Pure hypercholesterolemia, unspecified; Z23 Encounter for immunization; Z90.49 Acquired absence of other specified parts of digestive tract; Z79.899 Other long term (current) drug therapy; Z88.8 Allergy status to other drugs, medicaments and biological substances
CPT/HCPCS: 10060; 87070; 87077; 87186; 87205; 90471; 90715; 96372; 99283; J0696